=== PATIENT | male | born 1955 | race Caucasian/White ===

== ENCOUNTER 2020-12-30 15:51 | Inpatient (IN) ==
[2020-12-30] MEDS ORDERED: methylPREDNISolone 125 MG/2 ML VIAL IVP ONE (15:56)
[2020-12-30 16:18] LABS: ABG Base Excess 6 mEq/L (-2 to 3); ABG HCO3 34 mEq/L (21-27); ABG Oxygen Saturation 96 % (95-98); ABG PCO2 66 mmHg (35-45); ABG PH 7.32 pH Units (7.32-7.45); ABG PO2 92 mmHg (85-104); ABG TCO2 36 mEq/L (20-26)
[2020-12-30] MEDS ORDERED: Furosemide 40 MG/4 ML VIAL IVP ONE (16:31)
[2020-12-30 16:42] LABS: Basophils % 0.4 %; Eosinophils % 0.1 %; Hematocrit 30.6 % (37.5-50.1); Hemoglobin 10.2 g/dL (12.9-16.9); Immature Granulocytes % 0.4 % (0-4); Lymphocytes # 0.9 K/mcL (0.6-4.6); Mean Corpuscular HGB Conc 33.3 g/dL (31.6-35.5); Mean Corpuscular Hemoglobin 24.3 pg (28.0-33.3); Mean Platelet Volume 9.9 fL (9.4-12.4); Monocytes # 1.2 K/mcL (0.0-1.3); Monocytes % 12.6 %; Neutrophils # 7.6 K/mcL (1.6-8.9); Platelet Count 256 K/mcL (140-400); Red Blood Count 4.19 M/mcL (4.19-5.50); Red Cell Distribution Width 16.4 % (11.5-14.5); Segmented Neutrophils % 77.5 %; White Blood Count 9.8 K/mcL (4.3-11.1)
[2020-12-30 16:46] LABS: INR 1.2; Prothrombin Time 13.9 Seconds (9.4-12.1)
[2020-12-30 16:49] LABS: Activated Partial Thrombo Time 34.2 Seconds (26.0-36.0)
[2020-12-30 16:54] LABS: Alanine Aminotransferase 21 Units/L (7-52); Albumin 3.7 g/dL (3.5-5.7); Albumin/Globulin Ratio 1.2 (1.1-2.2); Alkaline Phosphatase 127 Units/L (34-104); Aspartate Amino Transferase 22 Units/L (13-39); BUN/Creatinine Ratio 11 (6-26); Bilirubin,Direct 0.1 mg/dL (0.0-0.2); Bilirubin,Indirect 0.4 mg/dL (0.0-1.0); Bilirubin,Total 0.5 mg/dL (0.3-1.0); Blood Urea Nitrogen 8 mg/dL (8-23); Calcium 8.6 mg/dL (8.6-10.3); Carbon Dioxide 36 mEq/L (23-29); Chloride 83 mEq/L (98-107); Globulin 3.1 g/dL (2.4-3.5); Glucose 75 mg/dL (70-105); Osmolality,Calculated 253 (280-300); Potassium 4.1 mEq/L (3.5-5.1); Sodium 123 mEq/L (136-145); Total Protein 6.8 g/dL (6.4-8.9); eGFR For African Americans > 60 (> 60); eGFR For Non-African Americans > 60 (> 60)
[2020-12-30 16:57] LABS: Troponin I < 0.03 ng/mL (< 0.04)
[2020-12-30] MEDS ORDERED: Ipratropium/Albuterol Neb 3 ML IH ONE (16:58)
[2020-12-30] MEDS ORDERED: Ondansetron 4 MG/2 ML VIAL IVP PRN (19:14)
[2020-12-30] MEDS ORDERED: Acetaminophen 325 MG TABLET PO PRN (19:14)
[2020-12-30] MEDS ORDERED: Mag Hydrox/Al Hydrox/Simeth 30 ML UDC PO PRN (19:14)
[2020-12-30] MEDS ORDERED: Naloxone 0.4 MG/ML INJ IVP PRN (19:14)
[2020-12-30] MEDS ORDERED: MOM Conc 10 ML UD.LIQ PO PRN (19:14)
[2020-12-30] MEDS ORDERED: *HR* Dextrose 50 % in Water (Vial) 50 ML VIAL IVP PRN (19:24)
[2020-12-30] MEDS ORDERED: D5% in Water 1,000 ML IVC PRN (19:24)
[2020-12-30] MEDS ORDERED: Dextrose Gel 15 GM/37.5 ML TUBE PO PRN ×2 (19:24)
[2020-12-30] MEDS: risperiDONE 1 MG TABLET PO SCH (21:00)
[2020-12-30] MEDS: levoFLOXacin 750 MG/150 ML 750 MG/150 ML BAG IVPB SCH (21:01)
[2020-12-30] MEDS: Ipratropium/Albuterol Neb 3 ML IH SCH (21:18)
[2020-12-30] MEDS: Insulin LISPRO 300 UNITS/3 ML VIAL SUBQ SCH (22:06)
[2020-12-30] MEDS: MethylPREDNISolone 40 MG/ML VIAL IVP SCH (23:51)
[2020-12-31] MEDS: Ipratropium/Albuterol Neb 3 ML IH SCH ×6 (00:22→19:55)
[2020-12-31 07:13] LABS: Basophils % 0.1 %; Eosinophils % 0.3 %; Hematocrit 30.2 % (37.5-50.1); Hemoglobin 9.8 g/dL (12.9-16.9); Immature Granulocytes % 0.6 % (0-4); Lymphocytes # 0.3 K/mcL (0.6-4.6); Lymphocytes % 2.7 %; Mean Corpuscular HGB Conc 32.5 g/dL (31.6-35.5); Mean Corpuscular Hemoglobin 23.7 pg (28.0-33.3); Mean Corpuscular Volume 73.1 fL (83.0-100.0); Mean Platelet Volume 9.4 fL (9.4-12.4); Monocytes # 0.5 K/mcL (0.0-1.3); Monocytes % 4.2 %; Neutrophils # 10.9 K/mcL (1.6-8.9); Platelet Count 237 K/mcL (140-400); Red Blood Count 4.13 M/mcL (4.19-5.50); Red Cell Distribution Width 16.2 % (11.5-14.5); Segmented Neutrophils % 92.1 %; White Blood Count 11.8 K/mcL (4.3-11.1)
[2020-12-31 08:14] LABS: BUN/Creatinine Ratio 15 (6-26); Blood Urea Nitrogen 9 mg/dL (8-23); Calcium 8.6 mg/dL (8.6-10.3); Carbon Dioxide 38 mEq/L (23-29); Chloride 84 mEq/L (98-107); Glucose 135 mg/dL (70-105); Osmolality,Calculated 267 (280-300); Potassium 4.2 mEq/L (3.5-5.1); Sodium 128 mEq/L (136-145); eGFR For African Americans > 60 (> 60); eGFR For Non-African Americans > 60 (> 60)
[2020-12-31] MEDS ORDERED: Perflutren Lipid Microsphere 1.3 ML in 0.9 % Sodium Chloride 8.7 ML IVP PRN (09:48)
[2020-12-31] MEDS: Insulin LISPRO 300 UNITS/3 ML VIAL SUBQ SCH ×4 (10:35→20:28)
[2020-12-31] MEDS: Nicotine 14 MG PATCH.TD24 TD SCH (10:35)
[2020-12-31] MEDS: MethylPREDNISolone 40 MG/ML VIAL IVP SCH ×3 (10:38→23:28)
[2020-12-31] MEDS: Furosemide 20 MG/2 ML VIAL IVP SCH ×2 (10:38→16:15)
[2020-12-31] MEDS: levoFLOXacin 750 MG/150 ML 750 MG/150 ML BAG IVPB SCH (10:38)
[2020-12-31] MEDS: risperiDONE 1 MG TABLET PO SCH ×2 (10:40→20:27)
[2020-12-31] MEDS: Aspirin 81 MG TAB.CHEW PO SCH (10:40)
[2020-12-31 10:49] LABS: ABG Base Excess 8 mEq/L (-2 to 3); ABG HCO3 36 mEq/L (21-27); ABG Oxygen Saturation 84 % (95-98); ABG PCO2 69 mmHg (35-45); ABG PH 7.33 pH Units (7.32-7.45); ABG PO2 54 mmHg (85-104); ABG TCO2 39 mEq/L (20-26)
[2020-12-31] MEDS: *HR* Enoxaparin 40 MG/0.4 ML SYRINGE SQ SCH (10:53)
[2021-01-01] MEDS: Ipratropium/Albuterol Neb 3 ML IH SCH ×7 (00:27→23:51)
[2021-01-01] MEDS: *HR* Enoxaparin 40 MG/0.4 ML SYRINGE SQ SCH (05:06)
[2021-01-01] MEDS: risperiDONE 1 MG TABLET PO SCH ×2 (07:54→21:26)
[2021-01-01] MEDS: Aspirin 81 MG TAB.CHEW PO SCH (07:54)
[2021-01-01] MEDS: Nicotine 14 MG PATCH.TD24 TD SCH (07:54)
[2021-01-01] MEDS: levoFLOXacin 750 MG/150 ML 750 MG/150 ML BAG IVPB SCH (07:55)
[2021-01-01] MEDS: Furosemide 20 MG/2 ML VIAL IVP SCH (07:56)
[2021-01-01] MEDS: MethylPREDNISolone 40 MG/ML VIAL IVP SCH ×2 (07:56→16:10)
[2021-01-01] MEDS: Insulin LISPRO 300 UNITS/3 ML VIAL SUBQ SCH ×4 (08:05→21:26)
[2021-01-01 09:45] LABS: Basophils % 0.1 %; Eosinophils % 0.1 %; Hematocrit 29.6 % (37.5-50.1); Hemoglobin 9.5 g/dL (12.9-16.9); Immature Granulocytes % 0.6 % (0-4); Lymphocytes # 0.5 K/mcL (0.6-4.6); Lymphocytes % 2.9 %; Mean Corpuscular HGB Conc 32.1 g/dL (31.6-35.5); Mean Corpuscular Hemoglobin 23.8 pg (28.0-33.3); Mean Corpuscular Volume 74.2 fL (83.0-100.0); Mean Platelet Volume 10.1 fL (9.4-12.4); Monocytes % 5.5 %; Neutrophils # 15.7 K/mcL (1.6-8.9); Platelet Count 280 K/mcL (140-400); Red Blood Count 3.99 M/mcL (4.19-5.50); Red Cell Distribution Width 16.4 % (11.5-14.5); Segmented Neutrophils % 90.8 %; White Blood Count 17.3 K/mcL (4.3-11.1)
[2021-01-01 10:00] LABS: BUN/Creatinine Ratio 15 (6-26); Blood Urea Nitrogen 12 mg/dL (8-23); Calcium 8.8 mg/dL (8.6-10.3); Carbon Dioxide 41 mEq/L (23-29); Chloride 80 mEq/L (98-107); Glucose 241 mg/dL (70-105); Osmolality,Calculated 268 (280-300); Potassium 4.4 mEq/L (3.5-5.1); Sodium 125 mEq/L (136-145); eGFR For African Americans > 60 (> 60); eGFR For Non-African Americans > 60 (> 60)
[2021-01-01] MEDS: acetaZOLAMIDE 250 MG TABLET PO SCH ×2 (14:50→21:26)
[2021-01-02] MEDS: MethylPREDNISolone 40 MG/ML VIAL IVP SCH ×2 (00:10→08:55)
[2021-01-02] MEDS: Ipratropium/Albuterol Neb 3 ML IH SCH ×5 (04:15→20:34)
[2021-01-02] MEDS: *HR* Enoxaparin 40 MG/0.4 ML SYRINGE SQ SCH (06:35)
[2021-01-02 07:19] LABS: Basophils % 0.1 %; Eosinophils % 0.2 %; Hematocrit 30.3 % (37.5-50.1); Hemoglobin 9.6 g/dL (12.9-16.9); Immature Granulocytes % 1.2 % (0-4); Lymphocytes # 0.4 K/mcL (0.6-4.6); Lymphocytes % 2.2 %; Mean Corpuscular HGB Conc 31.7 g/dL (31.6-35.5); Mean Corpuscular Hemoglobin 23.8 pg (28.0-33.3); Mean Corpuscular Volume 75.2 fL (83.0-100.0); Mean Platelet Volume 10.1 fL (9.4-12.4); Monocytes % 5.5 %; Neutrophils # 16.6 K/mcL (1.6-8.9); Platelet Count 275 K/mcL (140-400); Red Blood Count 4.03 M/mcL (4.19-5.50); Red Cell Distribution Width 16.8 % (11.5-14.5); Segmented Neutrophils % 90.8 %; White Blood Count 18.3 K/mcL (4.3-11.1)
[2021-01-02 07:46] LABS: BUN/Creatinine Ratio 16 (6-26); Blood Urea Nitrogen 13 mg/dL (8-23); Carbon Dioxide 38 mEq/L (23-29); Chloride 86 mEq/L (98-107); Glucose 276 mg/dL (70-105); Osmolality,Calculated 276 (280-300); Potassium 4.2 mEq/L (3.5-5.1); Sodium 128 mEq/L (136-145); eGFR For African Americans > 60 (> 60); eGFR For Non-African Americans > 60 (> 60)
[2021-01-02] MEDS: levoFLOXacin 750 MG/150 ML 750 MG/150 ML BAG IVPB SCH (08:51)
[2021-01-02] MEDS: Insulin LISPRO 300 UNITS/3 ML VIAL SUBQ SCH ×4 (08:55→22:11)
[2021-01-02] MEDS: Furosemide 20 MG/2 ML VIAL IVP SCH (08:55)
[2021-01-02] MEDS: Aspirin 81 MG TAB.CHEW PO SCH (08:56)
[2021-01-02] MEDS: risperiDONE 1 MG TABLET PO SCH ×2 (08:57→22:11)
[2021-01-02] MEDS: acetaZOLAMIDE 250 MG TABLET PO SCH ×2 (08:57→22:11)
[2021-01-02] MEDS: Nicotine 14 MG PATCH.TD24 TD SCH (08:57)
[2021-01-02] MEDS: predniSONE 20 MG TABLET PO SCH (17:03)
[2021-01-03] MEDS: Ipratropium/Albuterol Neb 3 ML IH SCH ×6 (00:24→20:29)
[2021-01-03 03:35] LABS: Hematocrit 29.2 % (37.5-50.1); Hemoglobin 9.2 g/dL (12.9-16.9); Mean Corpuscular HGB Conc 31.5 g/dL (31.6-35.5); Mean Corpuscular Hemoglobin 23.7 pg (28.0-33.3); Mean Corpuscular Volume 75.3 fL (83.0-100.0); Mean Platelet Volume 9.9 fL (9.4-12.4); Platelet Count 261 K/mcL (140-400); Red Blood Count 3.88 M/mcL (4.19-5.50); Red Cell Distribution Width 16.9 % (11.5-14.5); White Blood Count 17.7 K/mcL (4.3-11.1)
[2021-01-03 05:19] LABS: BUN/Creatinine Ratio 19 (6-26); Blood Urea Nitrogen 17 mg/dL (8-23); Calcium 8.7 mg/dL (8.6-10.3); Carbon Dioxide 35 mEq/L (23-29); Chloride 90 mEq/L (98-107); Glucose 261 mg/dL (70-105); Magnesium 1.8 mg/dL (1.6-2.6); Osmolality,Calculated 277 (280-300); Potassium 4.3 mEq/L (3.5-5.1); Sodium 128 mEq/L (136-145); eGFR For African Americans > 60 (> 60); eGFR For Non-African Americans > 60 (> 60)
[2021-01-03] MEDS: *HR* Enoxaparin 40 MG/0.4 ML SYRINGE SQ SCH (06:09)
[2021-01-03] MEDS: Insulin LISPRO 300 UNITS/3 ML VIAL SUBQ SCH ×3 (08:22→15:55)
[2021-01-03] MEDS: Nicotine 14 MG PATCH.TD24 TD SCH (08:24)
[2021-01-03] MEDS: predniSONE 20 MG TABLET PO SCH (08:24)
[2021-01-03] MEDS: risperiDONE 1 MG TABLET PO SCH ×2 (08:24→21:05)
[2021-01-03] MEDS: levoFLOXacin 750 MG/150 ML 750 MG/150 ML BAG IVPB SCH (08:24)
[2021-01-03] MEDS: Furosemide 20 MG/2 ML VIAL IVP SCH (08:25)
[2021-01-03] MEDS: acetaZOLAMIDE 250 MG TABLET PO SCH ×2 (08:25→21:05)
[2021-01-03] MEDS: Aspirin 81 MG TAB.CHEW PO SCH (08:25)
[2021-01-03] MEDS ORDERED: RisperiDONE MICROSPHERES 25 MG/2 ML SYRINGE IM SCH (09:00)
[2021-01-03] MEDS ORDERED: D5% in Water 1,000 ML IVC PRN (11:21)
[2021-01-03] MEDS ORDERED: *HR* Dextrose 50 % in Water (Vial) 50 ML VIAL IVP PRN (11:21)
[2021-01-03] MEDS ORDERED: Dextrose Gel 15 GM/37.5 ML TUBE PO PRN ×2 (11:21)
[2021-01-03] MEDS: Budesonide/Formoterol 160/4.5 1 PUFF INH IH SCH ×2 (11:30→20:29)
[2021-01-03] MEDS: lisinopriL 10 MG TABLET PO SCH (12:33)
[2021-01-03] MEDS: carvediloL 6.25 MG TABLET PO SCH (15:53)
[2021-01-03] MEDS ORDERED: Insulin LISPRO 300 UNITS/3 ML VIAL SUBQ SCH (21:00)
[2021-01-04] MEDS: Ipratropium/Albuterol Neb 3 ML IH SCH ×5 (00:06→15:06)
[2021-01-04] MEDS: *HR* Enoxaparin 40 MG/0.4 ML SYRINGE SQ SCH (06:26)
[2021-01-04 06:49] VITALS: BP 128/82
[2021-01-04 07:08] LABS: Hematocrit 36.3 % (37.5-50.1); Mean Corpuscular HGB Conc 32.2 g/dL (31.6-35.5); Mean Corpuscular Hemoglobin 23.9 pg (28.0-33.3); Mean Corpuscular Volume 74.2 fL (83.0-100.0); Mean Platelet Volume 9.8 fL (9.4-12.4); Platelet Count 287 K/mcL (140-400); Red Blood Count 4.89 M/mcL (4.19-5.50); Red Cell Distribution Width 16.9 % (11.5-14.5); White Blood Count 16.3 K/mcL (4.3-11.1)
[2021-01-04 07:09] LABS: Hemoglobin 11.7 g/dL (12.9-16.9)
[2021-01-04 07:17] LABS: BUN/Creatinine Ratio 17 (6-26); Blood Urea Nitrogen 14 mg/dL (8-23); Calcium 8.6 mg/dL (8.6-10.3); Carbon Dioxide 28 mEq/L (23-29); Chloride 93 mEq/L (98-107); Glucose 144 mg/dL (70-105); Magnesium 1.8 mg/dL (1.6-2.6); Osmolality,Calculated 267 (280-300); Potassium 3.7 mEq/L (3.5-5.1); Sodium 127 mEq/L (136-145); eGFR For African Americans > 60 (> 60); eGFR For Non-African Americans > 60 (> 60)
[2021-01-04] MEDS: Budesonide/Formoterol 160/4.5 1 PUFF INH IH SCH (07:35)
[2021-01-04] MEDS ORDERED: predniSONE 20 MG TABLET PO SCH (09:00)
[2021-01-04] MEDS: Furosemide 20 MG/2 ML VIAL IVP SCH (09:06)
[2021-01-04] MEDS: levoFLOXacin 750 MG/150 ML 750 MG/150 ML BAG IVPB SCH (09:08)
[2021-01-04] MEDS: Nicotine 14 MG PATCH.TD24 TD SCH (09:09)
[2021-01-04] MEDS: risperiDONE 1 MG TABLET PO SCH (09:10)
[2021-01-04] MEDS: Aspirin 81 MG TAB.CHEW PO SCH (09:10)
[2021-01-04] MEDS: lisinopriL 10 MG TABLET PO SCH (09:10)
[2021-01-04] MEDS: carvediloL 6.25 MG TABLET PO SCH (09:10)
[2021-01-04] MEDS: Insulin LISPRO 300 UNITS/3 ML VIAL SUBQ SCH ×2 (09:19→11:01)
[2021-01-04] MEDS ORDERED: Ipratropium/Albuterol Neb 3 ML IH SCH (22:00)
[2021-01-05] MEDS ORDERED: levoFLOXacin 750 MG TABLET PO SCH (09:00)
== END 2021-01-04 04:30 | disposition other institution (70) | DRG 291 ==
LOC: EMEROOPIK 15:51 → INPPIK 15:51
PROVIDERS: ADMIT Family Medicine; ATTEND Family Medicine

== ENCOUNTER 2021-01-04 11:07 | Inpatient (IN) ==
[2021-01-04] MEDS ORDERED: *HR* Dextrose 50 % in Water (Vial) 50 ML VIAL IVP PRN (17:20)
[2021-01-04] MEDS ORDERED: Dextrose Gel 15 GM/37.5 ML TUBE PO PRN ×2 (17:20)
[2021-01-04] MEDS ORDERED: D5% in Water 1,000 ML IVC PRN (17:20)
[2021-01-04] MEDS: carvediloL 6.25 MG TABLET PO SCH (17:41)
[2021-01-04] MEDS: *HR* Metformin 500 MG TABLET PO SCH (17:42)
[2021-01-04] MEDS ORDERED: Insulin LISPRO 300 UNITS/3 ML VIAL SUBQ SCH (17:45)
[2021-01-04] MEDS: Insulin LISPRO 300 UNITS/3 ML VIAL SUBQ SCH ×2 (17:52→20:32)
[2021-01-04] MEDS: risperiDONE 1 MG TABLET PO SCH (20:31)
[2021-01-04] MEDS: Ipratropium/Albuterol Neb 3 ML IH SCH (22:39)
[2021-01-04] MEDS: Budesonide/Formoterol 160/4.5 1 PUFF INH IH SCH (22:39)
[2021-01-05] MEDS: Ipratropium/Albuterol Neb 3 ML IH SCH ×3 (04:18→16:04)
[2021-01-05 05:28] LABS: Basophils % 0.1 %; Eosinophils % 0.1 %; Hematocrit 35.5 % (37.5-50.1); Hemoglobin 11.7 g/dL (12.9-16.9); Immature Granulocytes % 0.9 % (0-4); Lymphocytes % 13.7 %; Mean Corpuscular Hemoglobin 23.4 pg (28.0-33.3); Mean Platelet Volume 9.4 fL (9.4-12.4); Monocytes # 1.3 K/mcL (0.0-1.3); Monocytes % 8.7 %; Platelet Count 291 K/mcL (140-400); Red Cell Distribution Width 16.1 % (11.5-14.5); Segmented Neutrophils % 76.5 %; White Blood Count 14.4 K/mcL (4.3-11.1)
[2021-01-05 05:49] LABS: BUN/Creatinine Ratio 20 (6-26); Blood Urea Nitrogen 16 mg/dL (8-23); Calcium 8.4 mg/dL (8.6-10.3); Carbon Dioxide 29 mEq/L (23-29); Chloride 89 mEq/L (98-107); Glucose 136 mg/dL (70-105); Osmolality,Calculated 263 (280-300); Potassium 3.5 mEq/L (3.5-5.1); Sodium 125 mEq/L (136-145); eGFR For African Americans > 60 (> 60); eGFR For Non-African Americans > 60 (> 60)
[2021-01-05] MEDS: *HR* Enoxaparin 40 MG/0.4 ML SYRINGE SQ SCH (06:03)
[2021-01-05] MEDS: Insulin LISPRO 300 UNITS/3 ML VIAL SUBQ SCH ×4 (07:32→20:37)
[2021-01-05] MEDS: Aspirin 81 MG TAB.CHEW PO SCH (08:26)
[2021-01-05] MEDS: *HR* Metformin 500 MG TABLET PO SCH ×2 (08:26→18:03)
[2021-01-05] MEDS: calcium polycarbophiL 625 MG TABLET PO SCH (08:26)
[2021-01-05] MEDS: *HR* Pioglitazone 15 MG TABLET PO SCH (08:26)
[2021-01-05] MEDS: carvediloL 6.25 MG TABLET PO SCH ×2 (08:26→18:03)
[2021-01-05] MEDS: Multivit/Ca/Min/Fe/FA 1 TAB TABLET PO SCH (08:27)
[2021-01-05] MEDS: lisinopriL 10 MG TABLET PO SCH (08:27)
[2021-01-05] MEDS: *HR* SitaGLIPtin 100 MG TABLET PO SCH (08:27)
[2021-01-05] MEDS: Nicotine 14 MG PATCH.TD24 TD SCH (08:27)
[2021-01-05] MEDS: risperiDONE 1 MG TABLET PO SCH ×2 (08:27→20:36)
[2021-01-05] MEDS: Budesonide/Formoterol 160/4.5 1 PUFF INH IH SCH (09:48)
[2021-01-06] MEDS: Ipratropium/Albuterol Neb 3 ML IH SCH ×5 (00:34→21:52)
[2021-01-06] MEDS: Budesonide/Formoterol 160/4.5 1 PUFF INH IH SCH ×3 (00:35→21:52)
[2021-01-06] MEDS: *HR* Enoxaparin 40 MG/0.4 ML SYRINGE SQ SCH (06:05)
[2021-01-06] MEDS: Insulin LISPRO 300 UNITS/3 ML VIAL SUBQ SCH ×4 (07:45→21:32)
[2021-01-06] MEDS: calcium polycarbophiL 625 MG TABLET PO SCH (09:53)
[2021-01-06] MEDS: *HR* Pioglitazone 15 MG TABLET PO SCH (09:53)
[2021-01-06] MEDS: Aspirin 81 MG TAB.CHEW PO SCH (09:53)
[2021-01-06] MEDS: *HR* SitaGLIPtin 100 MG TABLET PO SCH (09:54)
[2021-01-06] MEDS: *HR* Metformin 500 MG TABLET PO SCH ×2 (09:54→16:53)
[2021-01-06] MEDS: carvediloL 6.25 MG TABLET PO SCH ×2 (09:54→16:53)
[2021-01-06] MEDS: Multivit/Ca/Min/Fe/FA 1 TAB TABLET PO SCH (09:54)
[2021-01-06] MEDS: risperiDONE 1 MG TABLET PO SCH ×2 (09:54→20:04)
[2021-01-06] MEDS: Nicotine 14 MG PATCH.TD24 TD SCH (09:55)
[2021-01-06] MEDS: lisinopriL 10 MG TABLET PO SCH (09:55)
[2021-01-07] MEDS: Ipratropium/Albuterol Neb 3 ML IH SCH ×4 (03:41→22:00)
[2021-01-07] MEDS: *HR* Enoxaparin 40 MG/0.4 ML SYRINGE SQ SCH (05:35)
[2021-01-07] MEDS: *HR* SitaGLIPtin 100 MG TABLET PO SCH (08:15)
[2021-01-07] MEDS: Multivit/Ca/Min/Fe/FA 1 TAB TABLET PO SCH (08:15)
[2021-01-07] MEDS: *HR* Metformin 500 MG TABLET PO SCH ×2 (08:15→16:19)
[2021-01-07] MEDS: Aspirin 81 MG TAB.CHEW PO SCH (08:15)
[2021-01-07] MEDS: calcium polycarbophiL 625 MG TABLET PO SCH (08:15)
[2021-01-07] MEDS: carvediloL 6.25 MG TABLET PO SCH ×2 (08:15→16:19)
[2021-01-07] MEDS: *HR* Pioglitazone 15 MG TABLET PO SCH (08:16)
[2021-01-07] MEDS: lisinopriL 10 MG TABLET PO SCH (08:16)
[2021-01-07] MEDS: risperiDONE 1 MG TABLET PO SCH ×2 (08:16→19:45)
[2021-01-07] MEDS: Insulin LISPRO 300 UNITS/3 ML VIAL SUBQ SCH ×4 (08:16→20:02)
[2021-01-07] MEDS: Nicotine 14 MG PATCH.TD24 TD SCH (08:16)
[2021-01-07] MEDS: Budesonide/Formoterol 160/4.5 1 PUFF INH IH SCH ×2 (10:41→22:00)
[2021-01-08] MEDS: Ipratropium/Albuterol Neb 3 ML IH SCH ×4 (04:00→22:16)
[2021-01-08] MEDS: *HR* Enoxaparin 40 MG/0.4 ML SYRINGE SQ SCH (05:56)
[2021-01-08] MEDS: Insulin LISPRO 300 UNITS/3 ML VIAL SUBQ SCH ×4 (09:06→20:12)
[2021-01-08] MEDS: Nicotine 14 MG PATCH.TD24 TD SCH (09:07)
[2021-01-08] MEDS: *HR* Pioglitazone 15 MG TABLET PO SCH (09:08)
[2021-01-08] MEDS: risperiDONE 1 MG TABLET PO SCH ×2 (09:08→19:28)
[2021-01-08] MEDS: *HR* Metformin 500 MG TABLET PO SCH ×2 (09:08→17:10)
[2021-01-08] MEDS: carvediloL 6.25 MG TABLET PO SCH ×2 (09:08→17:11)
[2021-01-08] MEDS: calcium polycarbophiL 625 MG TABLET PO SCH (09:09)
[2021-01-08] MEDS: *HR* SitaGLIPtin 100 MG TABLET PO SCH (09:09)
[2021-01-08] MEDS: Multivit/Ca/Min/Fe/FA 1 TAB TABLET PO SCH (09:09)
[2021-01-08] MEDS: Aspirin 81 MG TAB.CHEW PO SCH (09:09)
[2021-01-08] MEDS: lisinopriL 10 MG TABLET PO SCH (09:09)
[2021-01-08] MEDS: Budesonide/Formoterol 160/4.5 1 PUFF INH IH SCH ×2 (10:28→22:16)
[2021-01-09] MEDS: Ipratropium/Albuterol Neb 3 ML IH SCH ×4 (04:00→21:41)
[2021-01-09] MEDS: *HR* Enoxaparin 40 MG/0.4 ML SYRINGE SQ SCH (06:02)
[2021-01-09] MEDS: Budesonide/Formoterol 160/4.5 1 PUFF INH IH SCH ×2 (09:35→21:45)
[2021-01-09] MEDS: Insulin LISPRO 300 UNITS/3 ML VIAL SUBQ SCH ×4 (09:38→20:12)
[2021-01-09] MEDS: risperiDONE 1 MG TABLET PO SCH ×2 (09:39→20:07)
[2021-01-09] MEDS: Aspirin 81 MG TAB.CHEW PO SCH (09:39)
[2021-01-09] MEDS: lisinopriL 10 MG TABLET PO SCH (09:40)
[2021-01-09] MEDS: calcium polycarbophiL 625 MG TABLET PO SCH (09:40)
[2021-01-09] MEDS: *HR* SitaGLIPtin 100 MG TABLET PO SCH (09:40)
[2021-01-09] MEDS: *HR* Metformin 500 MG TABLET PO SCH ×2 (09:40→16:34)
[2021-01-09] MEDS: carvediloL 6.25 MG TABLET PO SCH ×2 (09:40→16:34)
[2021-01-09] MEDS: *HR* Pioglitazone 15 MG TABLET PO SCH (09:40)
[2021-01-09] MEDS: Nicotine 14 MG PATCH.TD24 TD SCH (09:41)
[2021-01-09] MEDS: Multivit/Ca/Min/Fe/FA 1 TAB TABLET PO SCH (09:41)
[2021-01-10] MEDS: Ipratropium/Albuterol Neb 3 ML IH SCH ×4 (04:40→22:06)
[2021-01-10] MEDS: *HR* Enoxaparin 40 MG/0.4 ML SYRINGE SQ SCH (05:13)
[2021-01-10] MEDS: Insulin LISPRO 300 UNITS/3 ML VIAL SUBQ SCH ×4 (08:11→21:30)
[2021-01-10] MEDS: *HR* Pioglitazone 15 MG TABLET PO SCH (08:20)
[2021-01-10] MEDS: Multivit/Ca/Min/Fe/FA 1 TAB TABLET PO SCH (08:20)
[2021-01-10] MEDS: risperiDONE 1 MG TABLET PO SCH ×2 (08:20→21:25)
[2021-01-10] MEDS: *HR* SitaGLIPtin 100 MG TABLET PO SCH (08:20)
[2021-01-10] MEDS: calcium polycarbophiL 625 MG TABLET PO SCH (08:21)
[2021-01-10] MEDS: Aspirin 81 MG TAB.CHEW PO SCH (08:21)
[2021-01-10] MEDS: carvediloL 6.25 MG TABLET PO SCH ×2 (08:21→16:49)
[2021-01-10] MEDS: lisinopriL 10 MG TABLET PO SCH (08:21)
[2021-01-10] MEDS: *HR* Metformin 500 MG TABLET PO SCH ×2 (08:21→16:49)
[2021-01-10] MEDS: Nicotine 14 MG PATCH.TD24 TD SCH (08:21)
[2021-01-10] MEDS: Budesonide/Formoterol 160/4.5 1 PUFF INH IH SCH ×2 (09:04→22:06)
[2021-01-10 09:31] LABS: Basophils % 0.4 %; Eosinophils # 0.1 K/mcL (0.0-0.6); Eosinophils % 1.2 %; Hematocrit 33.1 % (37.5-50.1); Hemoglobin 11.2 g/dL (12.9-16.9); Immature Granulocytes % 0.7 % (0-4); Lymphocytes # 1.3 K/mcL (0.6-4.6); Lymphocytes % 11.9 %; Mean Corpuscular HGB Conc 33.8 g/dL (31.6-35.5); Mean Corpuscular Hemoglobin 23.9 pg (28.0-33.3); Mean Corpuscular Volume 70.6 fL (83.0-100.0); Mean Platelet Volume 10.1 fL (9.4-12.4); Monocytes # 1.2 K/mcL (0.0-1.3); Monocytes % 11.2 %; Neutrophils # 7.9 K/mcL (1.6-8.9); Platelet Count 283 K/mcL (140-400); Red Blood Count 4.69 M/mcL (4.19-5.50); Red Cell Distribution Width 17.2 % (11.5-14.5); Segmented Neutrophils % 74.6 %; White Blood Count 10.6 K/mcL (4.3-11.1)
[2021-01-10 09:45] LABS: BUN/Creatinine Ratio 11 (6-26); Blood Urea Nitrogen 9 mg/dL (8-23); Calcium 8.8 mg/dL (8.6-10.3); Carbon Dioxide 33 mEq/L (23-29); Chloride 85 mEq/L (98-107); Glucose 215 mg/dL (70-105); Osmolality,Calculated 263 (280-300); Potassium 4.5 mEq/L (3.5-5.1); Sodium 124 mEq/L (136-145); eGFR For African Americans > 60 (> 60); eGFR For Non-African Americans > 60 (> 60)
[2021-01-10 10:25] LABS: Anisocytosis 1+ (Not Present); Microcytosis Present (Not Present); Ovalocytes 1+ (Not Present); Platelet Estimate Normal (Normal); Poikilocytosis 1+ (Not Present); Tear Drop Cells 1+ (Not Present)
[2021-01-10] MEDS ORDERED: Furosemide 40 MG TABLET PO ONE (12:00)
[2021-01-11] MEDS: Ipratropium/Albuterol Neb 3 ML IH SCH ×4 (04:42→21:17)
[2021-01-11] MEDS: *HR* Enoxaparin 40 MG/0.4 ML SYRINGE SQ SCH (05:56)
[2021-01-11] MEDS: risperiDONE 1 MG TABLET PO SCH ×2 (08:05→19:55)
[2021-01-11] MEDS: Aspirin 81 MG TAB.CHEW PO SCH (08:05)
[2021-01-11] MEDS: *HR* Pioglitazone 15 MG TABLET PO SCH (08:05)
[2021-01-11] MEDS: *HR* Metformin 500 MG TABLET PO SCH ×2 (08:06→16:56)
[2021-01-11] MEDS: *HR* SitaGLIPtin 100 MG TABLET PO SCH (08:06)
[2021-01-11] MEDS: Furosemide 20 MG TABLET PO SCH (08:06)
[2021-01-11] MEDS: carvediloL 6.25 MG TABLET PO SCH ×2 (08:06→16:56)
[2021-01-11] MEDS: Multivit/Ca/Min/Fe/FA 1 TAB TABLET PO SCH (08:06)
[2021-01-11] MEDS: lisinopriL 10 MG TABLET PO SCH (08:07)
[2021-01-11] MEDS: calcium polycarbophiL 625 MG TABLET PO SCH (08:07)
[2021-01-11] MEDS: Nicotine 14 MG PATCH.TD24 TD SCH (08:07)
[2021-01-11] MEDS: Insulin LISPRO 300 UNITS/3 ML VIAL SUBQ SCH ×4 (08:07→19:57)
[2021-01-11] MEDS: Budesonide/Formoterol 160/4.5 1 PUFF INH IH SCH ×2 (10:58→21:17)
[2021-01-11] MEDS ORDERED: Furosemide 40 MG TABLET PO ONE (11:59)
[2021-01-12] MEDS: Ipratropium/Albuterol Neb 3 ML IH SCH ×4 (03:55→22:13)
[2021-01-12] MEDS: *HR* Enoxaparin 40 MG/0.4 ML SYRINGE SQ SCH (05:58)
[2021-01-12] MEDS: *HR* Pioglitazone 15 MG TABLET PO SCH (09:18)
[2021-01-12] MEDS: Multivit/Ca/Min/Fe/FA 1 TAB TABLET PO SCH (09:19)
[2021-01-12] MEDS: *HR* Metformin 500 MG TABLET PO SCH ×2 (09:19→16:34)
[2021-01-12] MEDS: carvediloL 6.25 MG TABLET PO SCH ×2 (09:19→16:34)
[2021-01-12] MEDS: lisinopriL 10 MG TABLET PO SCH (09:19)
[2021-01-12] MEDS: calcium polycarbophiL 625 MG TABLET PO SCH (09:19)
[2021-01-12] MEDS: Aspirin 81 MG TAB.CHEW PO SCH (09:19)
[2021-01-12] MEDS: risperiDONE 1 MG TABLET PO SCH ×2 (09:19→20:35)
[2021-01-12] MEDS: Insulin LISPRO 300 UNITS/3 ML VIAL SUBQ SCH ×4 (09:20→20:34)
[2021-01-12] MEDS: *HR* SitaGLIPtin 100 MG TABLET PO SCH (09:20)
[2021-01-12] MEDS: Furosemide 20 MG TABLET PO SCH (09:20)
[2021-01-12] MEDS: Nicotine 14 MG PATCH.TD24 TD SCH (09:20)
[2021-01-12] MEDS: Budesonide/Formoterol 160/4.5 1 PUFF INH IH SCH ×2 (10:16→22:30)
[2021-01-13] MEDS: Ipratropium/Albuterol Neb 3 ML IH SCH ×4 (04:02→21:56)
[2021-01-13] MEDS: *HR* Enoxaparin 40 MG/0.4 ML SYRINGE SQ SCH (05:43)
[2021-01-13] MEDS: Multivit/Ca/Min/Fe/FA 1 TAB TABLET PO SCH (08:26)
[2021-01-13] MEDS: *HR* Metformin 500 MG TABLET PO SCH ×2 (08:26→17:05)
[2021-01-13] MEDS: Furosemide 20 MG TABLET PO SCH (08:26)
[2021-01-13] MEDS: calcium polycarbophiL 625 MG TABLET PO SCH (08:26)
[2021-01-13] MEDS: *HR* Pioglitazone 15 MG TABLET PO SCH (08:26)
[2021-01-13] MEDS: carvediloL 6.25 MG TABLET PO SCH ×2 (08:26→17:05)
[2021-01-13] MEDS: risperiDONE 1 MG TABLET PO SCH ×2 (08:26→20:47)
[2021-01-13] MEDS: *HR* SitaGLIPtin 100 MG TABLET PO SCH (08:26)
[2021-01-13] MEDS: Insulin LISPRO 300 UNITS/3 ML VIAL SUBQ SCH ×4 (08:27→20:48)
[2021-01-13] MEDS: lisinopriL 10 MG TABLET PO SCH (08:27)
[2021-01-13] MEDS: Aspirin 81 MG TAB.CHEW PO SCH (08:27)
[2021-01-13] MEDS: Nicotine 14 MG PATCH.TD24 TD SCH (08:28)
[2021-01-13] MEDS: Budesonide/Formoterol 160/4.5 1 PUFF INH IH SCH ×2 (09:29→21:57)
[2021-01-14] MEDS: Ipratropium/Albuterol Neb 3 ML IH SCH ×4 (04:05→22:01)
[2021-01-14] MEDS: *HR* Enoxaparin 40 MG/0.4 ML SYRINGE SQ SCH (05:06)
[2021-01-14 07:16] LABS: Basophils # 0.1 K/mcL (0.0-0.2); Basophils % 0.7 %; Eosinophils # 0.2 K/mcL (0.0-0.6); Eosinophils % 1.5 %; Hematocrit 31.7 % (37.5-50.1); Hemoglobin 10.4 g/dL (12.9-16.9); Immature Granulocytes % 0.6 % (0-4); Lymphocytes # 1.4 K/mcL (0.6-4.6); Lymphocytes % 13.6 %; Mean Corpuscular HGB Conc 32.8 g/dL (31.6-35.5); Mean Corpuscular Hemoglobin 23.5 pg (28.0-33.3); Mean Corpuscular Volume 71.7 fL (83.0-100.0); Mean Platelet Volume 9.7 fL (9.4-12.4); Monocytes # 1.3 K/mcL (0.0-1.3); Neutrophils # 7.3 K/mcL (1.6-8.9); Platelet Count 310 K/mcL (140-400); Red Blood Count 4.42 M/mcL (4.19-5.50); Red Cell Distribution Width 18.3 % (11.5-14.5); Segmented Neutrophils % 70.6 %; White Blood Count 10.3 K/mcL (4.3-11.1)
[2021-01-14 07:54] LABS: BUN/Creatinine Ratio 13 (6-26); Blood Urea Nitrogen 11 mg/dL (8-23); Calcium 8.9 mg/dL (8.6-10.3); Carbon Dioxide 33 mEq/L (23-29); Chloride 90 mEq/L (98-107); Glucose 146 mg/dL (70-105); Osmolality,Calculated 264 (280-300); Sodium 126 mEq/L (136-145); eGFR For African Americans > 60 (> 60); eGFR For Non-African Americans > 60 (> 60)
[2021-01-14] MEDS: Budesonide/Formoterol 160/4.5 1 PUFF INH IH SCH ×2 (08:58→22:01)
[2021-01-14] MEDS: Insulin LISPRO 300 UNITS/3 ML VIAL SUBQ SCH ×4 (09:38→21:12)
[2021-01-14] MEDS: *HR* Pioglitazone 15 MG TABLET PO SCH (09:38)
[2021-01-14] MEDS: Multivit/Ca/Min/Fe/FA 1 TAB TABLET PO SCH (09:39)
[2021-01-14] MEDS: lisinopriL 10 MG TABLET PO SCH (09:39)
[2021-01-14] MEDS: Aspirin 81 MG TAB.CHEW PO SCH (09:39)
[2021-01-14] MEDS: *HR* SitaGLIPtin 100 MG TABLET PO SCH (09:39)
[2021-01-14] MEDS: *HR* Metformin 500 MG TABLET PO SCH ×2 (09:39→16:13)
[2021-01-14] MEDS: calcium polycarbophiL 625 MG TABLET PO SCH (09:39)
[2021-01-14] MEDS: Furosemide 20 MG TABLET PO SCH (09:39)
[2021-01-14] MEDS: risperiDONE 1 MG TABLET PO SCH ×2 (09:40→20:27)
[2021-01-14] MEDS: carvediloL 6.25 MG TABLET PO SCH ×2 (09:40→16:13)
[2021-01-14] MEDS: Nicotine 14 MG PATCH.TD24 TD SCH (09:40)
[2021-01-15] MEDS: Ipratropium/Albuterol Neb 3 ML IH SCH ×4 (03:54→22:16)
[2021-01-15] MEDS: *HR* Enoxaparin 40 MG/0.4 ML SYRINGE SQ SCH (06:03)
[2021-01-15] MEDS: lisinopriL 10 MG TABLET PO SCH (07:48)
[2021-01-15] MEDS: *HR* Metformin 500 MG TABLET PO SCH ×2 (07:48→16:17)
[2021-01-15] MEDS: *HR* SitaGLIPtin 100 MG TABLET PO SCH (07:48)
[2021-01-15] MEDS: Furosemide 20 MG TABLET PO SCH (07:48)
[2021-01-15] MEDS: carvediloL 6.25 MG TABLET PO SCH ×2 (07:48→16:17)
[2021-01-15] MEDS: Multivit/Ca/Min/Fe/FA 1 TAB TABLET PO SCH (07:48)
[2021-01-15] MEDS: risperiDONE 1 MG TABLET PO SCH ×2 (07:49→19:33)
[2021-01-15] MEDS: calcium polycarbophiL 625 MG TABLET PO SCH (07:49)
[2021-01-15] MEDS: Nicotine 14 MG PATCH.TD24 TD SCH (07:49)
[2021-01-15] MEDS: Aspirin 81 MG TAB.CHEW PO SCH (07:49)
[2021-01-15] MEDS: *HR* Pioglitazone 15 MG TABLET PO SCH (07:49)
[2021-01-15] MEDS: Insulin LISPRO 300 UNITS/3 ML VIAL SUBQ SCH ×4 (07:50→19:33)
[2021-01-15] MEDS: Budesonide/Formoterol 160/4.5 1 PUFF INH IH SCH ×2 (10:44→22:16)
[2021-01-16] MEDS: Ipratropium/Albuterol Neb 3 ML IH SCH ×2 (03:44→10:20)
[2021-01-16] MEDS: *HR* Enoxaparin 40 MG/0.4 ML SYRINGE SQ SCH (06:04)
[2021-01-16] MEDS: Insulin LISPRO 300 UNITS/3 ML VIAL SUBQ SCH ×4 (08:48→22:37)
[2021-01-16] MEDS: Aspirin 81 MG TAB.CHEW PO SCH (09:09)
[2021-01-16] MEDS: risperiDONE 1 MG TABLET PO SCH ×2 (09:09→22:42)
[2021-01-16] MEDS: Furosemide 20 MG TABLET PO SCH (09:10)
[2021-01-16] MEDS: calcium polycarbophiL 625 MG TABLET PO SCH (09:10)
[2021-01-16] MEDS: Multivit/Ca/Min/Fe/FA 1 TAB TABLET PO SCH (09:10)
[2021-01-16] MEDS: *HR* Pioglitazone 45 MG TABLET PO SCH (09:10)
[2021-01-16] MEDS: carvediloL 6.25 MG TABLET PO SCH ×2 (09:10→17:22)
[2021-01-16] MEDS: *HR* Metformin 500 MG TABLET PO SCH ×2 (09:10→17:22)
[2021-01-16] MEDS: *HR* SitaGLIPtin 100 MG TABLET PO SCH (09:10)
[2021-01-16] MEDS: lisinopriL 10 MG TABLET PO SCH (09:10)
[2021-01-16] MEDS: Nicotine 14 MG PATCH.TD24 TD SCH (09:11)
[2021-01-16] MEDS: Budesonide/Formoterol 160/4.5 1 PUFF INH IH SCH ×2 (10:18→20:50)
[2021-01-16] MEDS ORDERED: Ipratropium/Albuterol Neb 3 ML IH PRN (11:01)
[2021-01-17] MEDS: *HR* Enoxaparin 40 MG/0.4 ML SYRINGE SQ SCH (06:40)
[2021-01-17] MEDS: Insulin LISPRO 300 UNITS/3 ML VIAL SUBQ SCH ×4 (07:02→20:55)
[2021-01-17] MEDS: calcium polycarbophiL 625 MG TABLET PO SCH (08:41)
[2021-01-17] MEDS: *HR* SitaGLIPtin 100 MG TABLET PO SCH (08:41)
[2021-01-17] MEDS: *HR* Pioglitazone 45 MG TABLET PO SCH (08:41)
[2021-01-17] MEDS: Aspirin 81 MG TAB.CHEW PO SCH (08:42)
[2021-01-17] MEDS: Furosemide 20 MG TABLET PO SCH (08:42)
[2021-01-17] MEDS: *HR* Metformin 500 MG TABLET PO SCH ×2 (08:42→16:25)
[2021-01-17] MEDS: risperiDONE 1 MG TABLET PO SCH ×2 (08:42→20:54)
[2021-01-17] MEDS: Multivit/Ca/Min/Fe/FA 1 TAB TABLET PO SCH (08:42)
[2021-01-17] MEDS: Nicotine 14 MG PATCH.TD24 TD SCH (08:43)
[2021-01-17] MEDS: carvediloL 6.25 MG TABLET PO SCH ×2 (08:45→16:25)
[2021-01-17] MEDS: Budesonide/Formoterol 160/4.5 1 PUFF INH IH SCH ×2 (10:32→21:27)
[2021-01-17] MEDS ORDERED: RISPERIDONE IM SCH (12:15)
[2021-01-18] MEDS: *HR* Enoxaparin 40 MG/0.4 ML SYRINGE SQ SCH (05:40)
[2021-01-18] MEDS: Budesonide/Formoterol 160/4.5 1 PUFF INH IH SCH ×2 (07:32→20:46)
[2021-01-18] MEDS: Multivit/Ca/Min/Fe/FA 1 TAB TABLET PO SCH (09:16)
[2021-01-18] MEDS: Nicotine 14 MG PATCH.TD24 TD SCH (09:17)
[2021-01-18] MEDS: carvediloL 6.25 MG TABLET PO SCH ×2 (09:17→17:59)
[2021-01-18] MEDS: Furosemide 20 MG TABLET PO SCH (09:17)
[2021-01-18] MEDS: *HR* Pioglitazone 45 MG TABLET PO SCH (09:17)
[2021-01-18] MEDS: Insulin LISPRO 300 UNITS/3 ML VIAL SUBQ SCH ×4 (09:17→21:05)
[2021-01-18] MEDS: *HR* SitaGLIPtin 100 MG TABLET PO SCH (09:17)
[2021-01-18] MEDS: calcium polycarbophiL 625 MG TABLET PO SCH (09:17)
[2021-01-18] MEDS: risperiDONE 1 MG TABLET PO SCH ×2 (09:17→21:05)
[2021-01-18] MEDS: *HR* Metformin 500 MG TABLET PO SCH ×2 (09:17→18:00)
[2021-01-18] MEDS: Aspirin 81 MG TAB.CHEW PO SCH (09:17)
[2021-01-19] MEDS: *HR* Enoxaparin 40 MG/0.4 ML SYRINGE SQ SCH (05:29)
[2021-01-19] MEDS: Insulin LISPRO 300 UNITS/3 ML VIAL SUBQ SCH ×4 (08:36→19:50)
[2021-01-19] MEDS: *HR* SitaGLIPtin 100 MG TABLET PO SCH (08:37)
[2021-01-19] MEDS: Aspirin 81 MG TAB.CHEW PO SCH (08:37)
[2021-01-19] MEDS: risperiDONE 1 MG TABLET PO SCH ×2 (08:37→19:50)
[2021-01-19] MEDS: Furosemide 20 MG TABLET PO SCH (08:37)
[2021-01-19] MEDS: carvediloL 6.25 MG TABLET PO SCH ×2 (08:38→18:09)
[2021-01-19] MEDS: calcium polycarbophiL 625 MG TABLET PO SCH (08:38)
[2021-01-19] MEDS: Multivit/Ca/Min/Fe/FA 1 TAB TABLET PO SCH (08:38)
[2021-01-19] MEDS: *HR* Metformin 500 MG TABLET PO SCH ×2 (08:38→18:09)
[2021-01-19] MEDS: Nicotine 14 MG PATCH.TD24 TD SCH (08:38)
[2021-01-19] MEDS: *HR* Pioglitazone 45 MG TABLET PO SCH (08:38)
[2021-01-19] MEDS: Budesonide/Formoterol 160/4.5 1 PUFF INH IH SCH ×2 (10:24→22:48)
[2021-01-20] MEDS: *HR* Enoxaparin 40 MG/0.4 ML SYRINGE SQ SCH (06:47)
[2021-01-20] MEDS: carvediloL 6.25 MG TABLET PO SCH ×2 (08:47→17:52)
[2021-01-20] MEDS: *HR* SitaGLIPtin 100 MG TABLET PO SCH (08:48)
[2021-01-20] MEDS: Aspirin 81 MG TAB.CHEW PO SCH (08:48)
[2021-01-20] MEDS: risperiDONE 1 MG TABLET PO SCH ×2 (08:48→19:39)
[2021-01-20] MEDS: Nicotine 14 MG PATCH.TD24 TD SCH (08:48)
[2021-01-20] MEDS: calcium polycarbophiL 625 MG TABLET PO SCH (08:48)
[2021-01-20] MEDS: *HR* Pioglitazone 45 MG TABLET PO SCH (08:48)
[2021-01-20] MEDS: *HR* Metformin 500 MG TABLET PO SCH ×2 (08:48→17:51)
[2021-01-20] MEDS: Furosemide 20 MG TABLET PO SCH (08:49)
[2021-01-20] MEDS: Multivit/Ca/Min/Fe/FA 1 TAB TABLET PO SCH (08:49)
[2021-01-20] MEDS: Insulin LISPRO 300 UNITS/3 ML VIAL SUBQ SCH ×4 (08:57→19:57)
[2021-01-20] MEDS: Budesonide/Formoterol 160/4.5 1 PUFF INH IH SCH ×2 (10:30→21:26)
[2021-01-21] MEDS: *HR* Enoxaparin 40 MG/0.4 ML SYRINGE SQ SCH (05:35)
[2021-01-21] MEDS: Nicotine 14 MG PATCH.TD24 TD SCH (09:13)
[2021-01-21] MEDS: carvediloL 6.25 MG TABLET PO SCH ×2 (09:14→16:50)
[2021-01-21] MEDS: calcium polycarbophiL 625 MG TABLET PO SCH (09:14)
[2021-01-21] MEDS: Aspirin 81 MG TAB.CHEW PO SCH (09:14)
[2021-01-21] MEDS: *HR* Pioglitazone 45 MG TABLET PO SCH (09:14)
[2021-01-21] MEDS: risperiDONE 1 MG TABLET PO SCH ×2 (09:14→21:00)
[2021-01-21] MEDS: Furosemide 20 MG TABLET PO SCH (09:15)
[2021-01-21] MEDS: *HR* SitaGLIPtin 100 MG TABLET PO SCH (09:15)
[2021-01-21] MEDS: *HR* Metformin 500 MG TABLET PO SCH ×2 (09:15→16:50)
[2021-01-21] MEDS: Multivit/Ca/Min/Fe/FA 1 TAB TABLET PO SCH (09:15)
[2021-01-21] MEDS: Insulin LISPRO 300 UNITS/3 ML VIAL SUBQ SCH ×4 (09:16→20:56)
[2021-01-21] MEDS: Budesonide/Formoterol 160/4.5 1 PUFF INH IH SCH ×2 (11:00→21:18)
[2021-01-22] MEDS: *HR* Enoxaparin 40 MG/0.4 ML SYRINGE SQ SCH (05:44)
[2021-01-22 07:17] VITALS: BP 106/58
[2021-01-22] MEDS: risperiDONE 1 MG TABLET PO SCH (08:12)
[2021-01-22] MEDS: Multivit/Ca/Min/Fe/FA 1 TAB TABLET PO SCH (08:12)
[2021-01-22] MEDS: carvediloL 6.25 MG TABLET PO SCH (08:12)
[2021-01-22] MEDS: *HR* Pioglitazone 45 MG TABLET PO SCH (08:12)
[2021-01-22] MEDS: Nicotine 14 MG PATCH.TD24 TD SCH (08:13)
[2021-01-22] MEDS: *HR* SitaGLIPtin 100 MG TABLET PO SCH (08:13)
[2021-01-22] MEDS: calcium polycarbophiL 625 MG TABLET PO SCH (08:13)
[2021-01-22] MEDS: Aspirin 81 MG TAB.CHEW PO SCH (08:13)
[2021-01-22] MEDS: *HR* Metformin 500 MG TABLET PO SCH (08:13)
[2021-01-22] MEDS: Furosemide 20 MG TABLET PO SCH (08:13)
[2021-01-22] MEDS: Insulin LISPRO 300 UNITS/3 ML VIAL SUBQ SCH ×2 (08:14→12:31)
[2021-01-22] MEDS: Budesonide/Formoterol 160/4.5 1 PUFF INH IH SCH (10:11)
== END 2021-01-22 12:40 | disposition home or self-care (01) | DRG 92 ==
LOC: INPPIK 17:16
PROVIDERS: ADMIT Family Medicine; ATTEND Family Medicine

== ENCOUNTER 2021-04-21 20:57 | Observation (INO) ==
[2021-04-21 21:36] LABS: Basophils % 0.3 %; Eosinophils % 0.1 %; Hematocrit 31.1 % (37.5-50.1); Hemoglobin 10.5 g/dL (12.9-16.9); Immature Granulocytes % 0.2 % (0-4); Lymphocytes % 10.1 %; Mean Corpuscular HGB Conc 33.8 g/dL (31.6-35.5); Mean Corpuscular Hemoglobin 24.4 pg (28.0-33.3); Mean Corpuscular Volume 72.3 fL (83.0-100.0); Mean Platelet Volume 8.8 fL (9.4-12.4); Monocytes # 1.1 K/mcL (0.0-1.3); Monocytes % 11.2 %; Neutrophils # 7.5 K/mcL (1.6-8.9); Platelet Count 221 K/mcL (140-400); Red Cell Distribution Width 18.5 % (11.5-14.5); Segmented Neutrophils % 78.1 %; White Blood Count 9.6 K/mcL (4.3-11.1)
[2021-04-21 21:52] LABS: BUN/Creatinine Ratio 7 (6-26); Blood Urea Nitrogen 5 mg/dL (8-23); Calcium 8.3 mg/dL (8.6-10.3); Carbon Dioxide 35 mEq/L (23-29); Chloride 77 mEq/L (98-107); Glucose 73 mg/dL (70-105); Osmolality,Calculated 236 (280-300); Potassium 4.1 mEq/L (3.5-5.1); Sodium 115 mEq/L (136-145); eGFR For African Americans > 60 (> 60); eGFR For Non-African Americans > 60 (> 60)
[2021-04-21] MEDS ORDERED: 0.9 % Sodium Chloride 1,000 ML IV ONE (22:13)
[2021-04-21] MEDS ORDERED: Ipratropium/Albuterol Neb 3 ML IH ONE (22:13)
[2021-04-21 23:30] LABS: Bilirubin,Urine Negative (Negative); Blood,Urine Negative (Negative); Clarity,Urine Clear (Clear); Color,Urine Yellow (Yellow); Glucose,Urine (UA) Normal (Normal); Ketones,Urine Negative (Negative); Leukocyte Esterase,Urine Negative (Negative); Nitrite,Urine Negative (Negative); Protein,Urine Negative (Neg-Trace); Specific Gravity,Urine 1.015 (1.010-1.025); Urobilinogen,Urine Normal (Normal)
[2021-04-21] MEDS ORDERED: methylPREDNISolone 125 MG/2 ML VIAL IVP ONE (23:32)
[2021-04-21] MEDS ORDERED: Azithromycin 500 MG in 0.9 % Sodium Chloride 250 ML IVPB ONE (23:32)
[2021-04-21] MEDS ORDERED: 0.9 % Sodium Chloride 1,000 ML IVC SCH (23:45)
[2021-04-21] MEDS ORDERED: *HR* Dextrose 50 % in Water (Syg) 50 ML SYRINGE ONE (23:51)
[2021-04-21] MEDS ORDERED: *HR* Dextrose 50 % in Water (Syg) 50 ML SYRINGE IVP ONE (23:58)
[2021-04-22] MEDS ORDERED: Naloxone 0.4 MG/ML INJ IVP PRN (00:15)
[2021-04-22] MEDS ORDERED: *HR* Dextrose 50 % in Water (Syg) 50 ML SYRINGE IVP ONE (00:15)
[2021-04-22] MEDS ORDERED: 0.9 % Sodium Chloride 1,000 ML IVC SCH (00:15)
[2021-04-22] MEDS ORDERED: Azithromycin 500 MG in 0.9 % Sodium Chloride 250 ML IVPB ONE (00:15)
[2021-04-22] MEDS ORDERED: D5% in Water 1,000 ML IVC PRN (00:21)
[2021-04-22] MEDS ORDERED: *HR* Dextrose 50 % in Water (Vial) 50 ML VIAL IVP PRN (00:21)
[2021-04-22] MEDS ORDERED: Dextrose Gel 15 GM/37.5 ML TUBE PO PRN ×2 (00:21)
[2021-04-22 01:17] LABS: BUN/Creatinine Ratio 7 (6-26); Blood Urea Nitrogen 4 mg/dL (8-23); Calcium 7.8 mg/dL (8.6-10.3); Carbon Dioxide 31 mEq/L (23-29); Chloride 82 mEq/L (98-107); Glucose 90 mg/dL (70-105); Osmolality,Calculated 240 (280-300); Potassium 3.8 mEq/L (3.5-5.1); Sodium 117 mEq/L (136-145); eGFR For African Americans > 60 (> 60); eGFR For Non-African Americans > 60 (> 60)
[2021-04-22 04:59] LABS: Basophils % 0.1 %; Eosinophils % 0.3 %; Hematocrit 30.7 % (37.5-50.1); Hemoglobin 10.4 g/dL (12.9-16.9); Immature Granulocytes % 0.6 % (0-4); Lymphocytes # 0.2 K/mcL (0.6-4.6); Lymphocytes % 3.1 %; Mean Corpuscular HGB Conc 33.9 g/dL (31.6-35.5); Mean Corpuscular Hemoglobin 24.4 pg (28.0-33.3); Mean Corpuscular Volume 72.1 fL (83.0-100.0); Mean Platelet Volume 9.3 fL (9.4-12.4); Monocytes # 0.1 K/mcL (0.0-1.3); Monocytes % 1.3 %; Neutrophils # 6.3 K/mcL (1.6-8.9); Platelet Count 220 K/mcL (140-400); Red Blood Count 4.26 M/mcL (4.19-5.50); Red Cell Distribution Width 18.3 % (11.5-14.5); Segmented Neutrophils % 94.6 %; White Blood Count 6.7 K/mcL (4.3-11.1)
[2021-04-22 06:11] LABS: BUN/Creatinine Ratio 8 (6-26); Blood Urea Nitrogen 5 mg/dL (8-23); Calcium 8.1 mg/dL (8.6-10.3); Carbon Dioxide 33 mEq/L (23-29); Chloride 84 mEq/L (98-107); Glucose 93 mg/dL (70-105); Osmolality,Calculated 245 (280-300); Potassium 4.2 mEq/L (3.5-5.1); Sodium 119 mEq/L (136-145); eGFR For African Americans > 60 (> 60); eGFR For Non-African Americans > 60 (> 60)
[2021-04-22] MEDS ORDERED: D5% in 0.45% NACL 1,000 ML IVC SCH ×2 (06:30→10:15)
[2021-04-22] MEDS ORDERED: carvediloL 6.25 MG TABLET PO SCH (08:00)
[2021-04-22] MEDS ORDERED: calcium polycarbophiL 625 MG TABLET PO SCH (09:00)
[2021-04-22] MEDS ORDERED: Aspirin 81 MG TAB.CHEW PO SCH (09:00)
[2021-04-22] MEDS ORDERED: *HR* Metformin 500 MG TABLET PO SCH (09:00)
[2021-04-22] MEDS ORDERED: *HR* Pioglitazone 45 MG TABLET PO SCH (09:00)
[2021-04-22] MEDS ORDERED: lisinopriL 10 MG TABLET PO SCH (09:00)
[2021-04-22] MEDS ORDERED: *HR* SitaGLIPtin 100 MG TABLET PO SCH (09:00)
[2021-04-22] MEDS ORDERED: risperiDONE 1 MG TABLET PO SCH (09:00)
[2021-04-22] MEDS ORDERED: Multivit/Ca/Min/Fe/FA 1 TAB TABLET PO SCH (09:00)
[2021-04-22] MEDS ORDERED: MethylPREDNISolone 40 MG/ML VIAL IVP SCH (09:11)
[2021-04-22 09:28] LABS: ABG Base Excess 5 mEq/L (-2 to 3); ABG HCO3 34 mEq/L (21-27); ABG Oxygen Saturation 90 % (95-98); ABG PCO2 77 mmHg (35-45); ABG PH 7.26 pH Units (7.32-7.45); ABG PO2 72 mmHg (85-104); ABG TCO2 37 mEq/L (20-26)
[2021-04-22] MEDS: Ipratropium/Albuterol Neb 3 ML IH SCH ×2 (09:38→11:23)
[2021-04-22 09:40] VITALS: BP 137/72; PULSE 105; TEMP 97.8
[2021-04-22] MEDS ORDERED: Budesonide/Formoterol 160/4.5 1 PUFF INH IH SCH (10:00)
[2021-04-22 11:25] VITALS: RESP 22; O2SAT 95
== END 2021-04-22 11:45 | disposition short-term general hospital (02) ==
LOC: EMEROOPIK 20:57 → INPPIK 20:57
PROVIDERS: ADMIT Internal Medicine; ATTEND Family Medicine

== ENCOUNTER 2021-05-20 14:52 | Observation (INO) ==
[2021-05-20] MEDS ORDERED: Azithromycin 500 MG in D5% in Water 250 ML IVPB ONE (15:23)
[2021-05-20] MEDS ORDERED: methylPREDNISolone 125 MG/2 ML VIAL IVP ONE (15:23)
[2021-05-20] MEDS ORDERED: Ipratropium/Albuterol Neb 3 ML IH ONE (15:23)
[2021-05-20] MEDS ORDERED: cefTRIAXone 1,000 MG in 0.9 % Sodium Chloride Mini Bag 100 ML IVPB ONE (15:23)
[2021-05-20 15:50] LABS: Bilirubin,Urine Negative (Negative); Blood,Urine Small (Negative); Clarity,Urine Clear (Clear); Color,Urine Yellow (Yellow); Glucose,Urine (UA) Normal (Normal); Ketones,Urine Negative (Negative); Leukocyte Esterase,Urine Small (Negative); Nitrite,Urine Negative (Negative); PH,Urine 6.5 pH Units (5.0-8.0); Protein,Urine Negative (Neg-Trace); Specific Gravity,Urine 1.015 (1.010-1.025); Urobilinogen,Urine Normal (Normal)
[2021-05-20 15:53] LABS: Basophils % 0.2 %; Hematocrit 33.9 % (37.5-50.1); Hemoglobin 11.6 g/dL (12.9-16.9); Immature Granulocytes % 0.4 % (0-4); Lymphocytes # 0.5 K/mcL (0.6-4.6); Lymphocytes % 3.1 %; Mean Corpuscular HGB Conc 34.2 g/dL (31.6-35.5); Mean Platelet Volume 9.3 fL (9.4-12.4); Monocytes # 2.3 K/mcL (0.0-1.3); Monocytes % 13.2 %; Neutrophils # 14.4 K/mcL (1.6-8.9); Platelet Count 182 K/mcL (140-400); Red Blood Count 4.46 M/mcL (4.19-5.50); Red Cell Distribution Width 21.2 % (11.5-14.5); Segmented Neutrophils % 83.1 %; White Blood Count 17.3 K/mcL (4.3-11.1)
[2021-05-20 15:58] LABS: Bacteria,Urine Many per hpf (None-Few); RBC,Urine 0-3 per hpf (0-3)
[2021-05-20 15:59] LABS: INR 1.3; Prothrombin Time 14.4 Seconds (9.4-12.1)
[2021-05-20 16:01] LABS: Activated Partial Thrombo Time 34.4 Seconds (26.0-36.0)
[2021-05-20 16:10] LABS: Alanine Aminotransferase 16 Units/L (7-52); Albumin 3.8 g/dL (3.5-5.7); Albumin/Globulin Ratio 1.6 (1.1-2.2); Alkaline Phosphatase 77 Units/L (34-104); Aspartate Amino Transferase 16 Units/L (13-39); BUN/Creatinine Ratio 12 (6-26); Bilirubin,Total 0.8 mg/dL (0.3-1.0); Blood Urea Nitrogen 7 mg/dL (8-23); Calcium 8.6 mg/dL (8.6-10.3); Carbon Dioxide 39 mEq/L (23-29); Chloride 78 mEq/L (98-107); Globulin 2.4 g/dL (2.4-3.5); Glucose 57 mg/dL (70-105); Osmolality,Calculated 248 (280-300); Potassium 3.7 mEq/L (3.5-5.1); Sodium 121 mEq/L (136-145); Total Protein 6.2 g/dL (6.4-8.9); Troponin I 0.03 ng/mL (< 0.04); eGFR For African Americans > 60 (> 60); eGFR For Non-African Americans > 60 (> 60)
[2021-05-20] MEDS ORDERED: Acetaminophen 325 MG TABLET PO PRN (16:13)
[2021-05-20] MEDS ORDERED: Naloxone 0.4 MG/ML INJ IVP PRN (16:13)
[2021-05-20] MEDS ORDERED: Ondansetron 4 MG/2 ML VIAL IVP PRN (16:13)
[2021-05-20] MEDS ORDERED: Ipratropium/Albuterol Neb 3 ML IH PRN (16:15)
[2021-05-20] MEDS ORDERED: 0.9 % Sodium Chloride 1,000 ML IVC SCH (16:15)
[2021-05-20] MEDS: Insulin DETEMIR 100 UNIT/ML X5UNITS SUBQ SCH (21:21)
[2021-05-20] MEDS: Budesonide/Formoterol 160/4.5 1 PUFF INH IH SCH (21:41)
[2021-05-21 07:54] LABS: Basophils % 0.1 %; Hematocrit 33.2 % (37.5-50.1); Hemoglobin 11.2 g/dL (12.9-16.9); Immature Granulocytes % 0.5 % (0-4); Lymphocytes # 0.5 K/mcL (0.6-4.6); Lymphocytes % 3.2 %; Mean Corpuscular HGB Conc 33.7 g/dL (31.6-35.5); Mean Corpuscular Hemoglobin 25.7 pg (28.0-33.3); Mean Corpuscular Volume 76.3 fL (83.0-100.0); Mean Platelet Volume 9.9 fL (9.4-12.4); Monocytes # 1.4 K/mcL (0.0-1.3); Monocytes % 8.4 %; Neutrophils # 14.4 K/mcL (1.6-8.9); Platelet Count 179 K/mcL (140-400); Red Blood Count 4.35 M/mcL (4.19-5.50); Red Cell Distribution Width 20.9 % (11.5-14.5); Segmented Neutrophils % 87.8 %; White Blood Count 16.4 K/mcL (4.3-11.1)
[2021-05-21 08:40] LABS: BUN/Creatinine Ratio 13 (6-26); Blood Urea Nitrogen 8 mg/dL (8-23); Calcium 8.6 mg/dL (8.6-10.3); Carbon Dioxide 39 mEq/L (23-29); Chloride 80 mEq/L (98-107); Glucose 150 mg/dL (70-105); Magnesium 1.6 mg/dL (1.6-2.6); Osmolality,Calculated 257 (280-300); Sodium 123 mEq/L (136-145); eGFR For African Americans > 60 (> 60); eGFR For Non-African Americans > 60 (> 60)
[2021-05-21] MEDS ORDERED: Dextrose Gel 15 GM/37.5 ML TUBE PO PRN ×2 (08:46)
[2021-05-21] MEDS ORDERED: *HR* Dextrose 50 % in Water (Vial) 50 ML VIAL IVP PRN (08:46)
[2021-05-21] MEDS ORDERED: D5% in Water 1,000 ML IVC PRN (08:46)
[2021-05-21] MEDS: *HR* SitaGLIPtin 100 MG TABLET PO SCH (09:08)
[2021-05-21] MEDS: *HR* Pioglitazone 45 MG TABLET PO SCH (09:08)
[2021-05-21] MEDS: Aspirin Enteric Coated 81 MG Tablet PO SCH (09:08)
[2021-05-21] MEDS: calcium polycarbophiL 625 MG TABLET PO SCH (09:08)
[2021-05-21] MEDS: lisinopriL 10 MG TABLET PO SCH (09:09)
[2021-05-21] MEDS: risperiDONE 1 MG TABLET PO SCH ×2 (09:15→17:32)
[2021-05-21] MEDS: *HR* Metformin 500 MG TABLET PO SCH ×2 (09:15→17:31)
[2021-05-21] MEDS: methylPREDNISolone 125 MG/2 ML VIAL IVP SCH ×2 (09:19→17:13)
[2021-05-21] MEDS: carvediloL 6.25 MG TABLET PO SCH ×2 (09:22→17:32)
[2021-05-21] MEDS: Budesonide/Formoterol 160/4.5 1 PUFF INH IH SCH ×3 (10:36→21:50)
[2021-05-21] MEDS: Insulin LISPRO 300 UNITS/3 ML VIAL SUBQ SCH ×2 (12:53→17:15)
[2021-05-21] MEDS ORDERED: Azithromycin 500 MG in 0.9 % Sodium Chloride 250 ML IVPB SCH (16:00)
[2021-05-21] MEDS ORDERED: cefTRIAXone 2,000 MG in 0.9 % Sodium Chloride Mini Bag 100 ML IVPB SCH (17:00)
[2021-05-21] MEDS ORDERED: Multivit/Ca/Min/Fe/FA 1 TAB TABLET PO SCH (17:00)
[2021-05-21] MEDS: Insulin DETEMIR 100 UNIT/ML X5UNITS SUBQ SCH (23:41)
[2021-05-22] MEDS: methylPREDNISolone 125 MG/2 ML VIAL IVP SCH ×2 (01:05→08:08)
[2021-05-22 07:52] VITALS: BP 105/50; PULSE 83; RESP 16; TEMP 98.7
[2021-05-22] MEDS: Insulin LISPRO 300 UNITS/3 ML VIAL SUBQ SCH (08:08)
[2021-05-22] MEDS: *HR* SitaGLIPtin 100 MG TABLET PO SCH (08:09)
[2021-05-22] MEDS: lisinopriL 10 MG TABLET PO SCH (08:09)
[2021-05-22] MEDS: carvediloL 6.25 MG TABLET PO SCH (08:09)
[2021-05-22] MEDS: risperiDONE 1 MG TABLET PO SCH (08:09)
[2021-05-22] MEDS: Aspirin Enteric Coated 81 MG Tablet PO SCH (08:10)
[2021-05-22] MEDS: *HR* Pioglitazone 45 MG TABLET PO SCH (08:10)
[2021-05-22] MEDS: *HR* Metformin 500 MG TABLET PO SCH (08:10)
[2021-05-22] MEDS: calcium polycarbophiL 625 MG TABLET PO SCH (08:18)
[2021-05-22 09:19] LABS: Hematocrit 36.5 % (37.5-50.1); Hemoglobin 12.1 g/dL (12.9-16.9); Mean Corpuscular HGB Conc 33.2 g/dL (31.6-35.5); Mean Corpuscular Hemoglobin 25.7 pg (28.0-33.3); Mean Corpuscular Volume 77.7 fL (83.0-100.0); Mean Platelet Volume 9.8 fL (9.4-12.4); Platelet Count 194 K/mcL (140-400); Red Cell Distribution Width 21.3 % (11.5-14.5); White Blood Count 13.5 K/mcL (4.3-11.1)
[2021-05-22 10:04] LABS: BUN/Creatinine Ratio 14 (6-26); Blood Urea Nitrogen 9 mg/dL (8-23); Calcium 9.2 mg/dL (8.6-10.3); Carbon Dioxide 41 mEq/L (23-29); Chloride 78 mEq/L (98-107); Glucose 172 mg/dL (70-105); Osmolality,Calculated 259 (280-300); Potassium 4.4 mEq/L (3.5-5.1); Sodium 123 mEq/L (136-145); eGFR For African Americans > 60 (> 60); eGFR For Non-African Americans > 60 (> 60)
[2021-05-22] MEDS: Budesonide/Formoterol 160/4.5 1 PUFF INH IH SCH (10:10)
[2021-05-22 10:14] VITALS: O2SAT 92
== END 2021-05-22 12:08 | disposition home health service (06) ==
LOC: SUPCPDRO → INPPIK 14:52 → EMEROOPIK 14:52 → INPPIK 17:20
PROVIDERS: ADMIT Family Medicine; ATTEND Family Medicine